=== PATIENT | female | born 2000 | race Caucasian/White ===

== ENCOUNTER 2025-01-06 05:32 | Observation (INO) | payer SELFPAY ==
[2025-01-06] VITALS (22 sets, daily range): BP systolic 93–129; BP diastolic 43–85; PULSE 48–67; RESP 8–19; TEMP 36.3–36.9; O2SAT 99–100; BMI 20.2
--- NOTE | ~2025-01-06 | CT_ITS ---
EXAMINATION: CT abdomen pelvis w con DATE: 01/06/2025 06:30 INDICATION: Abdomen pain TECHNIQUE: Computed tomography (CT) of the abdomen and pelvis was performed with 100 cc Omnipaque 350 intravenous contrast. The dose-length product was 204.58 mGy-cm. Automated exposure control and iterative reconstruction technique were employed. COMPARISON: None. FINDINGS: Lung bases unremarkable. Heart size normal. No significant pleural or pericardial effusion. There is mild periportal edema. Gallbladder is present. Otherwise, the liver, spleen, pancreas, adrenal glands and kidneys are unremarkable. Gallbladder is present. No significant vascular abnormality. No lymphadenopathy. Nonobstructive bowel gas pattern. No acute osseous abnormality. Nonobstructive bowel gas pattern. No significant vascular abnormality. There is a thickened enhancing appendix no evidence for perforation or abscess. Measuring 9 mm transversely. IMPRESSION: 1. Thickened enhancing appendix, compatible with uncomplicated appendicitis. Reviewed, dictated and finalized at location O.
[2025-01-06 05:47] LABS: BEDSIDEPREGUCG Negative (Negative)
[2025-01-06 05:55] LABS: Hematocrit 40.7 % (37.0-47.0); Hemoglobin 13.6 g/dL (12.0-15.0); Immature Granulocyte Percent A 0.5 % (0-0.5); Lymphocytes Absolute Auto 2.46 K/mm3 (0.9-3.2); Mean Corpuscular HGB Conc 33.4 g/dl (32-36); Mean Corpuscular Hemoglobin 32.9 pg (26-34); Mean Corpuscular Volume 98.3 fl (80-100); Nucleated Red Blood Cells Absolute Auto 0.000 K/mm3 (0.0-0.012); Nucleated Red Blood Cells Perc 0.0 % (0.0-0.2); Platelet Count Result 295 k/mm3 (150-375); Red Blood Count 4.14 M/mm3 (4.2-5.4); White Blood Count 15.2 K/mm3 (4.5-10.0)
[2025-01-06 05:58] LABS: Add Urine Microscopic? YES; Appearance Urine Cloudy (Clear); Glucose Urine UA Negative (Negative); Leukocyte Esterase Ur Negative LEU/UL (Negative); Nitrate Urine Negative (Negative); Non Pathogenic Casts 0-2; Specific Grav Ur 1.021 (1.001-1.035)
[2025-01-06 06:07] LABS: Alanine Aminotransferase 34 U/L (6-35); Albumin Level 4.7 g/dL (3.5-5.1); Alkaline Phosphatase 73 U/L (38-126); Anion Gap 10 mmol/L (4-12); Aspartate Amino Transferase 52 U/L (14-36); Bilirubin,Total 0.8 mg/dL (0.2-1.3); Blood Urea Nitrogen 13 mg/dL (7-17); Calcium 9.2 mg/dL (8.4-10.2); Carbon Dioxide 25 mmol/L (22-30); Chloride 102 mmol/L (98-107); Estimated CRCL calculation 89 ml/min; Estimated Glomerular Filt Rate > 60; Glucose 110 mg/dL (65-110); Lipase 75 U/L (23-300); Magnesium 1.9 mg/dL (1.6-2.3); Potassium 3.4 mmol/L (3.4-5.0); Sodium 137 mmol/L (137-145); Total Protein 8.0 g/dL (6.3-8.2)
[2025-01-06] MEDS: SODIUM CHLORIDE 0.9% IV 1,000 ML 999 ML IV CONT (06:13)
[2025-01-06] MEDS: ONDANSETRON INJ 4 MG/2 ML VIAL IV PUSH ×2 (06:13→07:34)
[2025-01-06] MEDS: MORPHINE SULFATE (*CRX) 2 MG/ML INJ IV PUSH ×2 (06:13→07:34)
--- NOTE | 2025-01-06 07:32 | ED_ITS ---
HPI - Abdominal Pain General Chief Complaint: Abdominal Pain Stated Complaint: abdominal pain x 4-5 hours Time Seen by Provider: 01/06/25 05:35 History of Present Illness HPI narrative: Patient is a 24-year-old female who presents to the emergency department this evening complaining of periumbilical abdominal pain and right lower quadrant abdominal pain which started approximately 4 hours ago. Patient states that this started on 1:00 a.m.. Denies any similar symptoms in the past. Admits to nausea and 1 episode of vomiting secondary to the pain. Denies any previous abdominal surgeries. Denies any urinary symptoms. There are no additional modifying, alleviating, or precipitating factors at this time. Related Data Home Medications ?Medication ?Instructions ?Recorded ?Confirmed ?Last Taken ?Type buspirone 5 mg tablet 5 mg PO BID 07/11/23 4 Unknown History norgestimate 0.18 mg/0.215mg/0.25 1 tablet PO DAILY 07/11/23 Unknown History mg-ethinyl estradiol 0.025 mg tablet (Tri-Lo-Eliana) Allergies Allergy/AdvReac Type Severity Reaction Status Date / Time No Known Allergies Allergy Verified 01/06/25 07:31 Review of Systems 2 Review of Systems: All systems are reviewed and are negative unless stated otherwise in the HPI. FORMERLY [facility], [facility] Past Medical History Medical History Depression Anxiety Family History Family History Father Depression Hypertension Anxiety Mother Hypertension Anxiety Depression Grandparent Heart problem Grandparent Heart problem Cerebrovascular accident Social History Social History Smoking status: Current every day smoker Tobacco type: e-cigarettes/vaping Second hand tobacco smoke exposure: Yes Alcohol intake: current Alcohol use details: 2-3 times a week has a glass of wine or beer Substance use: current Substance use type: marijuana Other substance usage details: smokes marijuana 2-3x/week Do You Feel Safe in your Home?: Yes Lack of Transportation: No Lack of Food: Never True Current Housing: I Have Housing Concerned About Future Housing: No Difficulty Paying Gas/Electric Bills: No Difficulty Paying for Meds: No Currently Unemployed: No Education: Bachelor's Degree Difficulty w/ Childcare or Family Care: No Living arrangements: with family Gender identity (if verbalized by the patient): Female Sexual Orientation (if Verbalized by the Patient): Straight or Heterosexual Exam 2 Narrative: General: Alert, awake, afebrile, in no acute distress. HEENT: PERRL, no rhinorrhea, no post nasal drip, oropharynx clear. Neck: Trachea midline, no JVD, no lymphadenopathy. Cardiovascular: Regular rate and rhythm, no murmurs, rubs or gallops, no peripheral edema. Respiratory: Clear to auscultation bilaterally, no tachypnea, no wheezing, no rhonchi, no rubs, no respiratory distress. Abdomen: Soft, tenderness to palpation over the periumbilical and right lower quadrant, nondistended, no rebound, no guarding, no peritoneal signs. Musculoskeletal: No joint swelling or deformity, normal muscle tone. Skin: No rashes or petechia, no signs of infection. Psychiatric: Alert and oriented, normal behavior and judgment for situation. Neurological: Alert and oriented to person, place, and time. Follows all commands. No focal deficits, speech is clear and fluent. Course Vital Signs Vital signs: Vital Signs Temperature 97.4 F L 01/06/25 05:38 Pulse Rate 50 L 01/06/25 05:38 Respiratory Rate 12 01/06/25 05:38 Blood Pressure 93/67 L 01/06/25 05:38 Pulse Oximetry 100 01/06/25 05:38 Oxygen Delivery Room Air 01/06/25 05:38 Temperature 97.4 F L 01/06/25 05:38 Pulse Rate 67 01/06/25 06:46 Respiratory Rate 15 01/06/25 06:46 Blood Pressure 116/73 01/06/25 06:46 Pulse Oximetry 100 01/06/25 06:46 Oxygen Delivery Room Air 01/06/25 05:38 MDM - Abdominal Pain MDM Narrative Medical decision making narrative: The patient was evaluated by myself in the emergency department. History is obtained from patient who is an independent historian and physical exam was performed. External medical records were reviewed at this time. IV was established and pertinent tests were ordered. Patient was administered total of 4 mg IV morphine for pain and 4 mg of IV Zofran for nausea and 1 L IV fluid bolus with normal saline. Laboratory results obtained revealing leukocytosis of 15.2 otherwise unremarkable. Imaging studies obtained included CT abdomen and pelvis with IV contrast which was independently interpreted by me revealing acute appendicitis, which is pending final radiology interpretation. Differential diagnosis considerations include appendicitis, pyelonephritis, ovarian torsion, urolithiasis Comorbidities impacting this visit include none. I have evaluated and discussed social determinants of health with the patient that could potentially impact subsequent diagnosis and treatment plans. On repeat assessment of the patient, reevaluation revealed that the patient is doing well and is in no acute distress. Patient symptoms have improved since she arrived to our emergency department. Repeat vital signs were all reviewed and noted to be stable. Differential diagnosis and treatment plan were discussed with the patient at bedside. Patient agrees with discussion and after shared medical decision making agrees with admission. All questions were answered to the patient's satisfaction. Case discussed with the on-call general surgeon Dr. Tripathi at 0735 any agreed to evaluate the patient. Per his request, patient will be admitted to [facility] under his service for possible surgery today. Lab Data 01/06/25 05:46 01/06/25 05:46 Labs: Lab Results 01/06/25 01/06/25 01/06/25 Range/Units 05:44 05:46 05:46 WBC 15.2 H (4.5-10.0) K/mm3 RBC 4.14 L (4.2-5.4) M/mm3 Hgb 13.6 (12.0-15.0) g/dL Hct 40.7 (37.0-47.0) % MCV 98.3 (80-100) fl MCH 32.9 (26-34) pg MCHC 33.4 (32-36) g/dl RDW 11.0 L (11.5-14.5) % Plt Count 295 (150-375) k/mm3 MPV 10.4 (7.4-10.4) fl Immature Gran % (Auto) 0.5 (0-0.5) % Neut % (Auto) 74.9 H (45.5-73.1) % Lymph % (Auto) 16.2 L (18.3-44.2) % [place] % (Auto) 7.5 (2.6-8.5) % Eos % (Auto) 0.5 (0-4.4) % Baso % (Auto) 0.4 (0.2-1.2) % Lymph # (Auto) 2.46 (0.9-3.2) K/mm3 [place] # (Auto) 1.1 H (0.1-0.6) K/mm3 Eos # (Auto) 0.1 (0-0.3) K/mm3 Baso # (Auto) 0.1 (0.0-0.1) K/mm3 Abs Immat Gran (auto) 0.08 H (0.00-0.031) K/mm3 Absolute Neuts (auto) 11.3 H (1.3-6.7) K/mm3 Absolute Nucleated RBC 0.000 (0.0-0.012) K/mm3 Nucleated RBC % 0.0 (0.0-0.2) % Sodium 137 (137-145) mmol/L Potassium 3.4 (3.4-5.0) mmol/L Chloride 102 (98-107) mmol/L Carbon Dioxide 25 (22-30) mmol/L Anion Gap 10 (4-12) mmol/L BUN 13 (7-17) mg/dL Creatinine 0.69 L (0.7-1.0) mg/dL Estim Creat Clear Calc 89 ml/min Estimated GFR > 60 (59 - ) Glucose 110 (65-110) mg/dL Calcium 9.2 (8.4-10.2) mg/dL Magnesium 1.9 Cancelled (1.6-2.3) mg/dL Total Bilirubin 0.8 (0.2-1.3) mg/dL AST 52 H (14-36) U/L ALT 34 (6-35) U/L Alkaline Phosphatase 73 (38-126) U/L Total Protein 8.0 (6.3-8.2) g/dL Albumin 4.7 (3.5-5.1) g/dL Lipase 75 (23-300) U/L Urine Color Yellow (Yellow) Urine Appearance Cloudy H (Clear) Urine pH 5.5 (5.0-9.0) Ur Specific [place] 1.021 (1.001-1.035) Urine Protein Trace (Negative) mg/dL Urine Glucose (UA) Negative (Negative) mg/dL Urine Ketones Trace H (Negative) mg/dL Ur Blood (Man) Negative (Negative) Urine Nitrate Negative (Negative) Urine Bilirubin Negative (Negative) Urine Urobilinogen 0.2 (<2.0) mg/dL Leukocyte Esterase Rfl Negative (Negative) AMRIT/UL Urine RBC 0-2 (0-2) /hpf Urine WBC 0-5 (0-3) /hpf Ur Squamous Epith Cells Few (Few) /hpf Urine Bacteria 1+ H /hpf Urine Casts 0-2 POC Urine HCG, Qual Negative (Negative) Imaging Data Radiologist's impression: ITS Impressions Abdomen/Pelvis CT 01/06/25 06:59 IMPRESSION: 1. Thickened enhancing appendix, compatible with uncomplicated appendicitis. Discharge Plan Discharge Clinical Impression: Abdominal pain, Acute appendicitis Patient Disposition: Still a Patient Condition: Stable Instructions: Antibiotic Form Patient Language: Qatari Prescriptions: No Action norgestimate-ethinyl estradiol [Tri-Lo-Eliana] 0.18/0.215/0.25 mg-25 mcg tablet 1 tablet PO DAILY buspirone 5 mg tablet 5 mg PO BID escitalopram oxalate [Lexapro] 20 mg tablet 20 mg PO DAILY Qty: 90 0RF Rx Instructions: LAST FILL UNTIL SEEN Follow-up/Referrals: Laurie Flor DO [Primary Care Provider, [facility]] Time of Disposition: 07:36
[2025-01-06] MEDS: PIPERACILLIN/TAZOBACTAM SOD 4.5 GM in SODIUM CHLORIDE 0.9% IV 100 ML 200 ML IVPB (07:40)
[2025-01-06] MEDS: SODIUM CHLORIDE 0.9% IV 1,000 ML 150 ML IV CONT (08:08)
--- NOTE | 2025-01-06 09:13 | PC.NURSE ---
This patient, Sarina Chandra, was admitted to [facility] Surg Room 324-02. Patient/family oriented to hospital policies and general routines including ID bracelet, bed and alarms, visiting hours, pain management, procedures, bathroom and other care routines, personal items, smoking policy, room service/diet, and visiting hours. Information on how to activate the Rapid Response Team has been discussed. Patient/Family are encouraged to report perceived risks to care and to ask questions if they do not understand what they are told or what they should do.
--- NOTE | 2025-01-06 09:52 | P.HP_ITS ---
H&P: HPI History of Present Illness Date/Time: 01/06/25 09:52 Chief Complaint: Abdominal pain Narrative: Patient is an otherwise healthy 24-year-old female who presented to the ED this morning with complaints of periumbilical and RLQ abdominal pain that started around 1:00 a.m. Patient states that she got off work around 11 and was laying in bed for a while before abdominal pain started. She was able to have a bowel movement, but pain persisted. She had 1 episode of emesis. Patient was up throughout the night with pain and ultimately presented to the ED this morning. Upon admission, labs demonstrated a white blood cell count of 15.2. A CT of the abdomen and pelvis was obtained and demonstrated a thickened enhancing appendix, compatible with uncomplicated appendicitis. No evidence of perforation or abscess. Pain is currently being treated with morphine. Nausea managed with Zofran. Given a dose of Zosyn. Patient now rates pain at 2. Comfortable in bed. Denies any history of abdominal surgeries. Currently NPO. Last ate last night. Afebrile. PMFSH Past Medical History Medical History Depression Anxiety Family History Family History Father Depression Hypertension Anxiety Mother Hypertension Anxiety Depression Grandparent Heart problem Grandparent Heart problem Cerebrovascular accident Social History Social History Smoking status: Current some day smoker Tobacco type: e-cigarettes/vaping Second hand tobacco smoke exposure: Yes Alcohol intake: current Drinks per week: 4 Alcohol use details: 2-3 times a week has a glass of wine or beer Substance use: current Substance use type: marijuana Other substance usage details: smokes marijuana 2-3x/week Do You Feel Safe in your Home?: Yes Lack of Transportation: No Lack of Food: Never True Current Housing: I Have Housing Concerned About Future Housing: Decline to Answer Difficulty Paying Gas/Electric Bills: Decline to Answer Difficulty Paying for Meds: Decline to Answer Currently Unemployed: No Education: Bachelor's Degree Difficulty w/ Childcare or Family Care: Decline to Answer Living arrangements: with family Gender identity (if verbalized by the patient): Female Sexual Orientation (if Verbalized by the Patient): Straight or Heterosexual Spiritual care concerns: No Meds Home Medications and Allergies Home Medications ?Medication ?Instructions ?Recorded ?Confirmed ?Type No Home Medications 01/06/25 01/06/25 H istory Allergies Allergy/AdvReac Type Severity Reaction Status Date / Time No Known Allergies Allergy Verified 01/06/25 09:26 Vital Signs Vital Signs - 24 hr 01/06/25 05:38 01/06/25 05:46 01/06/25 06:10 Temperature 97.4 F L Pulse Rate 50 L 64 59 L Respiratory Rate 12 16 15 Blood Pressure 93/67 L 100/62 98/64 L Pulse Oximetry 100 99 100 Oxygen Delivery Room Air 01/06/25 06:36 01/06/25 06:46 01/06/25 06:47 Temperature Pulse Rate 48 L 67 54 L Respiratory Rate 13 15 15 Blood Pressure 129/85 116/73 Pulse Oximetry 100 100 100 Oxygen Delivery 01/06/25 07:00 01/06/25 07:15 01/06/25 07:33 Temperature Pulse Rate 60 57 L 60 Respiratory Rate 8 L 12 19 Blood Pressure Pulse Oximetry 100 100 Oxygen Delivery 01/06/25 07:45 01/06/25 08:00 01/06/25 08:16 Temperature Pulse Rate 57 L 61 58 L Respiratory Rate 15 15 16 Blood Pressure Pulse Oximetry 100 100 100 Oxygen Delivery 01/06/25 08:30 01/06/25 08:45 Temperature Pulse Rate 62 57 L Respiratory Rate 16 14 Blood Pressure Pulse Oximetry 100 100 Oxygen Delivery Exam Const: General: comfortable and no acute distress Eyes: General: appearance normal, both eyes and all related structures Neck: Neck: supple Resp: Effort & Inspection: normal respiratory effort Cardio: Rate: bradycardic (Appears to be baseline) GI: Inspection: non-distended GI Palp: Yes Soft to palpation, Yes Tenderness to palpation present (GI) (Right lower quadrant and periumbilical) and No Guarding due to palpation present (GI) Auscultation: abnormal bowel sounds (Hypoactive) Skin: General skin exam: normal color and no rashes or lesions noted Neuro: Speech: normal speech Sensory Exam: normal sensation Extrem: General: normal to inspection Psych: Mental Status: mental status grossly normal H&P: Results Labs Labs: Short CBC 01/06/25 Range/Units 05:46 WBC 15.2 H (4.5-10.0) K/mm3 Hgb 13.6 (12.0-15.0) g/dL Hct 40.7 (37.0-47.0) % Plt Count 295 (150-375) k/mm3 BMP 01/06/25 05:46 Sodium 137 Potassium 3.4 Chloride 102 Carbon Dioxide 25 BUN 13 Creatinine 0.69 L Glucose 110 Calcium 9.2 Liver Function 01/06/25 Range/Units 05:46 Total Bilirubin 0.8 (0.2-1.3) mg/dL AST 52 H (14-36) U/L ALT 34 (6-35) U/L Alkaline Phosphatase 73 (38-126) U/L Albumin 4.7 (3.5-5.1) g/dL Urine 01/06/25 Range/Units 05:46 Urine Color Yellow (Yellow) Urine Appearance Cloudy H (Clear) Urine pH 5.5 (5.0-9.0) Ur Specific [place] 1.021 (1.001-1.035) Urine Protein Trace (Negative) mg/dL Urine Glucose (UA) Negative (Negative) mg/dL Assessment and Plan Assessment and plan (1) Acute appendicitis: Code(s): K35.80 - Unspecified acute appendicitis Status: Acute Assessment and Plan: Patient presented to the ED this morning with abdominal pain that began earlier in the night around 1:00 a.m. She notes associated nausea and vomiting. Upon admission to the ED, CT demonstrated thickened enhancing appendix, compatible with uncomplicated appendicitis. No perforation or abscess noted. WBC elevated at 15.2. Patient currently being treated with morphine and Zofran. Given a dose of Zosyn around 0740. Scheduled for laparoscopic appendectomy today at 1300. Discussed the procedure, as well as risks and benefits. All questions were answered. Plan Discussed patient's case and plan of care with Dr. Tripathi.
--- NOTE | 2025-01-06 11:38 | PC.NURSE ---
To OR per [ ], IV [ ]. Report given to [keyshawn].
[2025-01-06] MEDS: ACETAMINOPHEN 500 MG TABLET 1000 MG PO (12:05)
[2025-01-06] MEDS: KETOROLAC 15 MG/ML VIAL (*BKC) IV PUSH (12:05)
--- NOTE | 2025-01-06 12:36 | WPDANESEPPF ---
Anes - Initial Pre Proc Eval Procedure: Operation Date: 01/06/25 13:00 Proposed Procedures p Laparoscopic Appendectomy - Kalpesh Tripathi DO Date/Time: 01/06/25 12:36 Surgeon: Kalpesh Tripathi DO Pre Op Diagnosis: acute appendicitis Patient Data Age: 24 Gender: F Height: 1.63 m Weight: 53.5 kg Last Vital Signs Temp 36.8 C 01/06/25 12:24 Pulse 55 L 01/06/25 12:24 Resp 14 01/06/25 12:24 BP 100/59 L 01/06/25 12:24 Pulse Ox 100 01/06/25 12:24 O2 Del Method Room Air 01/06/25 05:38 Allergies Allergy/AdvReac Type Severity Reaction Status Date / Time No Known Allergies Allergy Verified 01/06/25 09:26 Home Medications ?Medication ?Instructions ?Recorded ?Confirmed ?Type No Home Medications 01/06/25 01/06/25 History Laboratory Tests 01/06/25 01/06/25 01/06/25 05:44 05:46 05:46 WBC 15.2 H K/mm3 (4.5-10.0) RBC 4.14 L M/mm3 (4.2-5.4) Hgb 13.6 g/dL (12.0-15.0) Hct 40.7 % (37.0-47.0) MCV 98.3 fl (80-100) MCH 32.9 pg (26-34) MCHC 33.4 g/dl (32-36) RDW 11.0 L % (11.5-14.5) Plt Count 295 k/mm3 (150-375) MPV 10.4 fl (7.4-10.4) Immature Gran % (Auto) 0.5 % (0-0.5) Neut % (Auto) 74.9 H % (45.5-73.1) Lymph % (Auto) 16.2 L % (18.3-44.2) [place] % (Auto) 7.5 % (2.6-8.5) Eos % (Auto) 0.5 % (0-4.4) Baso % (Auto) 0.4 % (0.2-1.2) Lymph # (Auto) 2.46 K/mm3 (0.9-3.2) [place] # (Auto) 1.1 H K/mm3 (0.1-0.6) Eos # (Auto) 0.1 K/mm3 (0-0.3) Baso # (Auto) 0.1 K/mm3 (0.0-0.1) Abs Immat Gran (auto) 0.08 H K/mm3 (0.00-0.031) Absolute Neuts (auto) 11.3 H K/mm3 (1.3-6.7) Absolute Nucleated RBC 0.000 K/mm3 (0.0-0.012) Nucleated RBC % 0.0 % (0.0-0.2) Sodium 137 mmol/L (137-145) Potassium 3.4 mmol/L (3.4-5.0) Chloride 102 mmol/L (98-107) Carbon Dioxide 25 mmol/L (22-30) Anion Gap 10 mmol/L (4-12) BUN 13 mg/dL (7-17) Creatinine 0.69 L mg/dL (0.7-1.0) Estim Creat Clear Calc 89 ml/min Estimated GFR > 60 (59 - ) Glucose 110 mg/dL (65-110) Calcium 9.2 mg/dL (8.4-10.2) Magnesium 1.9 mg/dL Cancelled (1.6-2.3) Total Bilirubin 0.8 mg/dL (0.2-1.3) AST 52 H U/L (14-36) ALT 34 U/L (6-35) Alkaline Phosphatase 73 U/L (38-126) Total Protein 8.0 g/dL (6.3-8.2) Albumin 4.7 g/dL (3.5-5.1) Lipase 75 U/L (23-300) Urine Color Yellow (Yellow) Urine Appearance Cloudy H (Clear) Urine pH 5.5 (5.0-9.0) Ur Specific [place] 1.021 (1.001-1.035) Urine Protein Trace mg/dL (Negative) Urine Glucose (UA) Negative mg/dL (Negative) Urine Ketones Trace H mg/dL (Negative) Ur Blood (Man) Negative (Negative) Urine Nitrate Negative (Negative) Urine Bilirubin Negative (Negative) Urine Urobilinogen 0.2 mg/dL (<2.0) Leukocyte Esterase Rfl Negative AMRIT/UL (Negative) Urine RBC 0-2 /hpf (0-2) Urine WBC 0-5 /hpf (0-3) Ur Squamous Epith Cells Few /hpf (Few) Urine Bacteria 1+ H /hpf Urine Casts 0-2 POC Urine HCG, Qual Negative (Negative) Patient hx anesthesia problems: none Family hx anesthesia problems: none Results Review: All pre-operative results and documents have been reviewed as part of the pre-operative evaluation. PMFSH Past Medical History Medical History Depression Anxiety Family History Family History Father Depression Hypertension Anxiety Mother Hypertension Anxiety Depression Grandparent Heart problem Grandparent Heart problem Cerebrovascular accident Social History Social History Smoking status: Current some day smoker Tobacco type: e-cigarettes/vaping Second hand tobacco smoke exposure: Yes Alcohol intake: current Drinks per week: 4 Alcohol use details: 2-3 times a week has a glass of wine or beer Substance use: current Substance use type: marijuana Other substance usage details: smokes marijuana 2-3x/week Do You Feel Safe in your Home?: Yes Lack of Transportation: No Lack of Food: Never True Current Housing: I Have Housing Concerned About Future Housing: Decline to Answer Difficulty Paying Gas/Electric Bills: Decline to Answer Difficulty Paying for Meds: Decline to Answer Currently Unemployed: No Education: Bachelor's Degree Difficulty w/ Childcare or Family Care: Decline to Answer Living arrangements: with family Gender identity (if verbalized by the patient): Female Sexual Orientation (if Verbalized by the Patient): Straight or Heterosexual Spiritual care concerns: No Anes - Eval Final PreProcedure Day of Procedure 01/06/25 12:36 Patient weight: normal Heart: regular rate and rhythm Lungs: clear to auscultation Airway: Mallampati scale class II Neurological: alert and oriented Last oral intake: >/= 8 hours ASA classification: II Emergent: no Anesthetic plan: proceed Anesthesia type and monitoring: general ETT and standard monitoring Results Review: All pre-operative results and documents have been reviewed as part of the pre-operative evaluation. Informed Consent: The patient's anesthetic plan and its attendant risks and benefits were discussed with the patient/family/POA. Questions were solicited and answers provided to the satisfaction of the patient/family/POA.
--- NOTE | 2025-01-06 12:42 | WPDHPUPDATE1 ---
History and Physical Update Update Date/Time: 01/06/25 12:42 History and Physical has been reviewed, including an updated exam of the patient. There are NO changes in the patient's condition. Risks, benefits, and alternatives have been discussed and questions answered. Patient agrees to proceed with procedure.
[2025-01-06] MEDS: ceFAZolin 2 GM in SODIUM CHLORIDE 0.9% IV 50 ML 100 ML IVPB (12:48)
[2025-01-06] MEDS: metroNIDAZOLE 500 MG/ISO 100ML 500 MG/100 ML BAG 100 MG IVPB (12:59)
--- NOTE | 2025-01-06 13:21 | S_PTH ---
PATIENT: Sarina Chandra LOC: [id number] U#:[id number] AGE/SX: 24/F ROOM: 324 RE01/06/[address]: Kalpesh Tripathi DO : 2000 BED: 02 DIS: 01/06/2025 SPEC #: [id number] RECD: 01/06/25 14:01 STATUS: ESVIN REQ #: [id number] NANCY: 01/06/25 13:[address]: Kalpesh Tripathi DEPT: [facility] Surgical RECD BY: Lanie Savage ENTERED: 01/06/25 14:01 SP TYPE: Surgical OTHR DR: Laurie Flor DO Tissues: A - Appendix Procedures: Hematoxylin and Eosin Stain Gross and Microscopic Level 3
[2025-01-06] MEDS: BUPIVACAINE/EPINEPHRINE 0.5% 30 ML VIAL INFILTRATE (13:24)
[2025-01-06] MEDS: LACTATED RINGERS 1,000 ML 30 ML IV CONT (13:48)
--- NOTE | 2025-01-06 14:14 | W.PM.PROC2 ---
Procedure Note - Detailed Date of Procedure 01/06/25 Pre-op Diagnosis acute appendicitis Post-op Diagnosis Same Procedure Performed Laparoscopic appendectomy Surgeon Kalpesh Tripathi, DO Anesthesia General and Local (0.5% bupivacaine with epinephrine) Indications This is a 24-year-old woman who presented to the emergency department this morning with right lower quadrant pain that started last night. She was found to have an elevated white blood count and CT showed evidence of acute appendicitis. She was started on IV Zosyn. Discussions were made with the patient about treatment options and decision was made to proceed with laparoscopic appendectomy, possible open. Findings Laparoscopic appendectomy was performed. The patient's appendix appeared dilated and indurated, but there was no evidence of perforation or abscess. The base of the appendix appeared healthy and viable. No other intra-abdominal abnormalities were noted. The appendix was removed and sent to the lab for pathology. Description of Procedure Procedure as well as risks, benefits, and alternatives were explained to the patient. The patient agreed to proceed. Written consent was obtained and placed in chart prior to procedure. The patient was brought back to surgical suite. She was placed supine on operating table. Time-out was done to confirm the patient and procedure. The patient was then intubated by the Anesthesia Department. Her abdomen was prepped and draped in sterile fashion using chlorhexidine prep. A 12 mm incision was made at the inferior portion of the umbilicus. Blunt dissection was carried out down to the linea alba. The linea alba was then incised using a 15 blade scalpel. Then bluntly entered into the peritoneal cavity. A 12 mm trocar was then inserted, and carbon dioxide insufflation was used to create a pneumoperitoneum. The camera was inserted and the abdomen was inspected. No immediate abnormalities were identified. The patient was then placed in slight Trendelenburg position and rotated to the left. A 5 mm incision was made in the suprapubic region in midline and a 5 mm trocar was inserted under direct visualization. A 5 mm incision was made in the left lower quadrant and a 5 mm trocar was inserted under direct visualization. The right lower quadrant was carefully inspected. The cecum was identified and then this was traced back to the appendix. The appendix was identified and grasped at the mesoappendix and lifted anteriorly. Careful blunt dissection was carried out at the base of the appendix through the mesoappendix using a [place] grasper. An Endo-CARLOS 45 mm blue load stapler was then advanced across the base of the appendix and clamped and fired. A white reload was then clamped across the mesoappendix and fired. This freed up our appendix completely. It was then placed in an EndoCatch bag and removed through the umbilical port. The staple lines were then inspected. Hemostasis appeared adequate and the staple lines appeared secure. The area was then irrigated with sterile saline. The pelvis was then carefully inspected and irrigated with sterile saline as well and the remainder of the abdomen was carefully inspected. The patient was then flattened out in bed. One final inspection was made around the abdominal cavity and no other abnormalities were seen. The ports were then removed under direct visualization. The camera was removed and the pneumoperitoneum was released. The fascia of the umbilical incision was reapproximated using an 0 Vicryl [id number] suture. 0.5% bupivacaine with epinephrine was infiltrated locally around each of the incisions. The skin of the incisions was then approximated using 4-0 Monocryl subcuticular suture and Exofin glue was applied on top. The patient was then awakened from anesthesia, extubated, and transferred to Recovery. Estimated Blood Loss 5 Pathology Yes (Appendix) Complications No immediate complications Condition Stable Disposition Observation [facility] Billing Surgery - Charge Forward: Surgery Billing
[2025-01-06] MEDS: fentaNYL CITRATE INJ (*CRX) 100 MCG/2 ML VIAL 25 MCG IV PUSH ×2 (14:20→14:26)
--- NOTE | 2025-01-06 14:42 | P.DS_ITS ---
DS: Admitting Diagnosis Discharge Date 01/06/2025 Admitting Diagnosis Acute appendicitis DS: Discharge Diagnosis Discharge Diagnosis (1) Acute appendicitis: Qualifiers: Acute appendicitis type: with localized peritonitis Appendicitis gangrene presence: without gangrene Appendicitis perforation presence: without perforation Appendicitis abscess presence: without abscess Qualified Code(s): K35.30 - Acute appendicitis with localized peritonitis, without perforation or gangrene Code(s): K35.80 - Unspecified acute appendicitis Status: Acute DS: Summary Hospital Course Reason for hospitalization: Acute appendicitis Hospital Course: This is a 24-year-old woman who presented to the emergency department 01/06/2025 with right lower quadrant pain that started the night before. She was noted to have a slightly elevated white blood count and CT showed evidence of acute uncomplicated appendicitis. She was started on Zosyn, placed in observation, and then underwent laparoscopic appendectomy that afternoon. Surgery was uncomplicated and she was returned to the surgical floor postoperatively. Her diet and activity were advanced as tolerated. She was discharged home once her pain was adequately controlled, she was tolerating her diet, vitals remained stable, and she was ambulating in the halls. Status at Discharge Functional status at discharge: independent ambulation Overall status at discharge: patient is progressing back to baseline Time Spent with Patient Time attestation: Total time spent providing and/or coordinating discharge services: Time spent: Less than 30 minutes Exam Const: General: comfortable and no acute distress Resp: Effort & Inspection: normal respiratory effort Cardio: Rate: regular rate Rhythm: regular rhythm Heart sounds: S1 normal heart sound present and S2 normal heart sound present GI: Inspection: incision (Intact with glue) DS: Data Data Completed and Pending Pending studies at discharge: Pending at discharge 01/06/25 13:21 Surgical [PTH] Routine Labs on day of discharge: Labs from last 24 hours 01/06/25 01/06/25 01/06/25 05:46 05:46 05:44 WBC 15.2 H RBC 4.14 L Hgb 13.6 Hct 40.7 MCV 98.3 MCH 32.9 MCHC 33.4 RDW 11.0 L Plt Count 295 MPV 10.4 Immature Gran % (Auto) 0.5 Neut % (Auto) 74.9 H Lymph % (Auto) 16.2 L [place] % (Auto) 7.5 Eos % (Auto) 0.5 Baso % (Auto) 0.4 Lymph # (Auto) 2.46 [place] # (Auto) 1.1 H Eos # (Auto) 0.1 Baso # (Auto) 0.1 Abs Immat Gran (auto) 0.08 H Absolute Neuts (auto) 11.3 H Absolute Nucleated RBC 0.000 Nucleated RBC % 0.0 Sodium 137 Potassium 3.4 Chloride 102 Carbon Dioxide 25 Anion Gap 10 BUN 13 Creatinine 0.69 L Estim Creat Clear Calc 89 Estimated GFR > 60 Glucose 110 Calcium 9.2 Magnesium Cancelled 1.9 Total Bilirubin 0.8 AST 52 H ALT 34 Alkaline Phosphatase 73 Total Protein 8.0 Albumin 4.7 Lipase 75 Urine Color Yellow Urine Appearance Cloudy H Urine pH 5.5 Ur Specific [place] 1.021 Urine Protein Trace Urine Glucose (UA) Negative Urine Ketones Trace H Ur Blood (Man) Negative Urine Nitrate Negative Urine Bilirubin Negative Urine Urobilinogen 0.2 Leukocyte Esterase Rfl Negative Urine RBC 0-2 Urine WBC 0-5 Ur Squamous Epith Cells Few Urine Bacteria 1+ H Urine Casts 0-2 POC Urine HCG, Qual Negative Imaging Radiologist's impression: ITS Impressions Abdomen/Pelvis CT 01/06/25 06:59 IMPRESSION: 1. Thickened enhancing appendix, compatible with uncomplicated appendicitis. Discharge Plan Discharge Attending physician on discharge: Kalpesh King Discharging Clinician: Kalpesh King Patient Disposition: Home Activity: other - see discharge instructions Diet: regular Wound Care Instructions: other - see discharge instructions Discharge Instructions: DISCHARGE INSTRUCTION SHEET FOR HERNIA, GALLBLADDER AND APPENDIX SURGERIES DR. KING PATIENT TO TAKE HOME 1. May shower in 24 hours, no soaking in bath x 2weeks. 2. Call office for: * Wound increasingly painful or bleeding * Vomiting * Fever of greater than 101 degrees 3. If no bowel movement for three days, take 1 oz. (30 ml) Milk of Magnesia or MiraLax 17g 1 to 2 times daily. 4. No heavy lifting > 10-15 pounds x 2 weeks for laparoscopic cholecystectomy or appendectomy. 5. No driving for 3 days or while taking narcotic pain medications. 6. Ice to surgical site for 48 hours (30 min on, then 30 min off). 7. Up walking 10-30 minutes three times per day. 8. Resume previous home medications. 9. Follow-up 10-14 days in office for wound check or as previously scheduled. ([id number]) 10. Oral pain medications prescription to be sent to pharmacy. Take Tylenol 500mg every 6 hours and Ibuprofen 600mg every 6 hours for the first 2 days, then as needed. 11. NUTRITION: Start out by drinking fluids and increase your diet as tolerated. If you experience nausea, try dry toast, crackers, and 7-UP. If nausea or vomiting persists, contact your surgeon?s office. 12. Gallbladders-Low Fat Diet for 2 weeks (send care note of low fat diet) 13. Inguinal Hernias-wear scrotal support for 48 hours 14. Abdominal Hernias-if sent home with abdominal binder, wear for the first 2 weeks (may remove to shower or at night to sleep). Revised September 2018 Patient Instructions: Antibiotic Form, How to Stop Smoking (DC), Opioid Safety (DC), Electronic Cigarettes and Your Health (GEN) Patient Language: Czech Stand Alone Forms: General Discharge Information Follow-up/Referrals: Kalpesh King, DO [Physician, General Surgery] - 2 Weeks Discharge Medications: New hydrocodone-acetaminophen 5-325 mg tablet 1 tablet PO Q4H PRN (Reason: pain) Qty: 10 0RF Date of admission: 01/06/25 07:37 Primary Care Provider: Laurie Flor Admitting Provider: Kalpesh King Attending physician on admission: Kalpesh King Condition: Improved
--- NOTE | 2025-01-06 14:46 | PC.NURSE ---
Returned from OR per [ ]. Report received from [ LAURA].
[2025-01-06] MEDS: LACTATED RINGERS 1,000 ML 100 ML IV CONT (15:09)
[2025-01-06] MEDS: HYDROcodone/acetaminophen (*CRX) 5-325 MG TABLET 1 TAB PO (15:15)
== END 2025-01-06 18:05 | disposition home or self-care (01) ==
LOC: ANHED 07:36 → ANH3MEDSUR 08:16
PROVIDERS: Admitting Provider Surgery; Emergency Provider Emergency Medicine; PCP Family Medicine; Visit Provider Surgery
PROC: 0DTJ4ZZ Resection of Appendix, Percutaneous Endoscopic Approach (ICD-10-PCS; CPT 44970; principal; 2025-01-06 13:00)
DX: K35.30 Acute appendicitis with localized peritonitis, without perforation or gangrene (principal); F41.8 Other specified anxiety disorders; F17.290 Nicotine dependence, other tobacco product, uncomplicated
CPT/HCPCS: 44970; 36415; 74177; 80053; 81001; 81025; 83690; 83735; 85025; 88304; 96361; 96365; 96375; 96376; 99285; J0690; A9270; G0378; J1100; J1836; J1885; J2250; J2270; J2405; J2543; J2704; J3010; J7030; J7120; Q9967